=== PATIENT | female | born 1995 | race Caucasian/White ===

== ENCOUNTER 2017-08-24 22:30 | Emergency (ER) | payer BC, MEDICAID ==
[2017-08-24] MEDS ORDERED: Ondansetron 8 MG Tab.DIS PO ONE (22:38)
[2017-08-24] MEDS ORDERED: Ketorolac 60 MG/2 ML SDV IM ONE (22:38)
--- NOTE | 2017-08-24 22:44 | EDM.PDOC ---
ED HPI GENERAL MEDICAL PROBLEM - General Stated Complaint: HEADACHE,NAUSEA Time Seen by Provider: 08/24/17 22:30 Source of Information: Reports: Patient, Family History Limitations: Reports: No Limitations - History of Present Illness INITIAL COMMENTS - FREE TEXT/NARRATIVE: 22 y.o.w.f with a h/o migraine headache, came to the ed wit headache starting in the front going to her neck. No traume. Usually, her migraine meds work, but not today. She c/o photophobia, nausea and headache. No trauma. No other acute medical issue. BP 117/76 pulse 76 Temp 36.6 Pulse ox 98% on RA Onset: Today Onset Date: 08/24/17 Onset Time: 21:00 Duration: Hour(s):, Intermittent Location: Reports: Head Quality: Reports: Ache, Burning, Same as Previous Episode Improves with: Reports: Medication Context: Reports: Other Associated Symptoms: Reports: No Other Symptoms Headache Pain Score (Numeric/FACES): 7 - Related Data Allergies Allergy/AdvReac Type Severity Reaction Status Date / Time No Known Allergies Allergy Verified 06/14/16 04:31 Home Meds: Home Meds FLUoxetine [PROzac] 20 mg PO DAILY 06/14/16 [History] Past Medical History Neurological History: Reports: Migraines Psychiatric History: Reports: Anxiety, Depression Social & Family History - Tobacco Use Smoking Status *Q: Never Smoker Second Hand Smoke Exposure: No - Caffeine Use Caffeine Use: Reports: Energy Drinks, Soda - Recreational Drug Use Recreational Drug Use: No ED ROS GENERAL - Review of Systems Review Of Systems: See Below Constitutional: Reports: No Symptoms HEENT: Reports: No Symptoms Respiratory: Reports: No Symptoms Cardiovascular: Reports: No Symptoms Endocrine: Reports: No Symptoms GI/Abdominal: Reports: Nausea : Reports: No Symptoms Musculoskeletal: Reports: No Symptoms Skin: Reports: No Symptoms Neurological: Reports: Headache Psychiatric: Reports: No Symptoms Hematologic/Lymphatic: Reports: No Symptoms ED EXAM, GI/ABD - Physical Exam Exam: See Below Exam Limited By: No Limitations General Appearance: Alert, WD/WN, No Apparent Distress Eyes: Bilateral: Normal Appearance Ears: Normal External Exam Nose: Normal Inspection, Normal Mucosa, No Blood Throat/Mouth: Normal Inspection, Normal Lips Head: Atraumatic, Normocephalic Neck: Normal Inspection, Supple, Non-Tender, Full Range of Motion Respiratory/Chest: No Respiratory Distress, Lungs Clear, Normal Breath Sounds, No Accessory Muscle Use, Chest Non-Tender Cardiovascular: Normal Peripheral Pulses, Regular Rate, Rhythm, No Edema, No Gallop, No Rub GI/Abdominal Exam: Normal Bowel Sounds, Soft, Non-Tender, No Organomegaly, No Distention (Female) Exam: Deferred Rectal (Female) Exam: Deferred Back Exam: Normal Inspection, Full Range of Motion Extremities: Normal Inspection, Normal Range of Motion, Non-Tender, No Pedal Edema Neurological: Alert, Oriented, CN II-XII Intact, Normal Cognition, Normal Gait, No Motor/Sensory Deficits Psychiatric: Normal Affect, Normal Mood Skin Exam: Warm, Dry, Intact, Normal Color, No Rash Lymphatic: No Adenopathy Course - Vital Signs Text/Narrative:: 22 y.o.w.f with a h/o migraine headache, came to the ed wit headache starting in the front going to her neck. No traume. Usually, her migraine meds work, but not today. She c/o photophobia, nausea and headache. No trauma. No other acute medical issue. BP 117/76 pulse 76 Temp 36.6 Pulse ox 98% on RA PE: WNWD WF with photphobia, H/A and nausea. Impression: Tension H/A vs migraine Tx: Zofran, Toradol Reexam: Improved Plan: D/C with instructions Last Recorded V/S: Last Vital Signs Temp 36.6 C 08/25/17 00:18 Pulse 76 08/25/17 00:18 Resp 18 08/25/17 00:18 BP 117/86 08/25/17 00:18 Pulse Ox 97 08/25/17 00:18 - Orders/Labs/Meds Meds: Medications Discontinued Medications Generic Name Dose Route Start Last Admin Trade Name Freq PRN Reason Stop Dose Admin Ketorolac Tromethamine 60 mg 08/24/17 22:38 Toradol IM 08/24/17 22:39 ONETIME ONE Ondansetron HCl 8 mg 08/24/17 22:38 Zofran Odt PO 08/24/17 22:39 ONETIME ONE Departure - Departure Time of Disposition: 00:04 Disposition: Home, Self-Care 01 Condition: Good Clinical Impression: Tension type headache, unspecified Qualifiers: Headache chronicity pattern: acute headache Intractability: not intractable Qualified Code(s): G44.209 - Tension-type headache, unspecified, not intractable - Discharge Information Instructions: Recurrent Migraine Headache, [id number] Referrals: Catherine Bonilla NP [Primary Care Provider] - Additional Instructions: Please take Zofran for nausea, please cont your meds, Motrin with food for tension typ headache. Please f/u, come back if your symptoms gets worse acutely.
[2017-08-25] MEDS ORDERED: Ondansetron 4 MG Tab.DIS PO ONE (00:08)
[2017-08-25 00:20] VITALS: BP 117/86
== END 2017-08-25 00:10 | disposition home or self-care (01) ==
LOC: FB.ED 22:30
DX: G44.209 Tension-type headache, unspecified, not intractable (principal)
CPT/HCPCS: 96372; 99283; A9270; J1885

== ENCOUNTER 2022-08-20 06:47 | Emergency (ER) | payer BC ==
[2022-08-20] MEDS ORDERED: Ondansetron 4 MG/2 ML SDV IVPUSH ONE (07:08)
[2022-08-20] MEDS ORDERED: Sodium Chloride 0.9% 1,000 ML IV ONE (07:08)
[2022-08-20] MEDS ORDERED: Morphine 4 MG/ML VIAL IVPUSH ONE (07:08)
[2022-08-20 07:31] LABS: ESTIMATED GFR 121 mL/min (>60)
[2022-08-20] MEDS ORDERED: Iopamidol 755 Mg/ML 100 ML Bottle IV ONE (09:09)
[2022-08-20 11:05] VITALS: BP 134/89; PULSE 98
== END 2022-08-20 09:54 | disposition home or self-care (01) ==
LOC: FB.ED 06:47
DX: N39.0 Urinary tract infection, site not specified (principal)
CPT/HCPCS: 74177; 80048; 81001; 81025; 85025; 87086; 96361; 96374; 96375; 99284-25; J2270; J2405; J7030; Q9967

== ENCOUNTER 2022-10-25 21:19 | Emergency (ER) | payer BC ==
[2022-10-25] MEDS ORDERED: Ondansetron 4 MG Tab.DIS PO ONE (21:20)
[2022-10-25] MEDS ORDERED: Ondansetron 4 MG Tab.DIS PO STA (21:39)
[2022-10-25] MEDS ORDERED: Ketorolac 30 MG/ML SDV IM STA (21:39)
[2022-10-25 22:10] VITALS: BP 128/89; PULSE 100
== END 2022-10-25 22:40 | disposition home or self-care (01) ==
LOC: FB.ED 21:19
DX: G43.909 Migraine, unspecified, not intractable, without status migrainosus (principal); D64.9 Anemia, unspecified; Z79.899 Other long term (current) drug therapy
CPT/HCPCS: 96372; 99283; J1885; Q0162

== ENCOUNTER 2023-05-12 22:27 | Emergency (ER) | payer BC ==
[2023-05-12] MEDS ORDERED: Ketorolac 30 MG/ML SDV IM ONE (22:56)
[2023-05-12] MEDS ORDERED: Metoclopramide 10 MG/2 ML SDV IM ONE (22:56)
[2023-05-12] MEDS ORDERED: diphenhydrAMINE 50 MG/ML SDV IM ONE (22:56)
[2023-05-12 23:40] VITALS: BP 124/56; PULSE 76
== END 2023-05-12 23:40 | disposition home or self-care (01) ==
LOC: FB.ED 22:27
DX: G43.911 Migraine, unspecified, intractable, with status migrainosus (principal); Z79.899 Other long term (current) drug therapy
CPT/HCPCS: 96372; 99283; J1200; J1885; J2765